=== PATIENT | male | born 1940 | race Caucasian/White ===

== ENCOUNTER 2023-06-11 01:46 | Emergency (ER) | payer OTHER, MEDICARE, SELFPAY ==
[2023-06-11 01:48] VITALS: BP 128/77; PULSE 83; RESP 18; TEMP 36.7; O2SAT 95; BMI 28.3
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
[2023-06-11 02:10] VITALS: BP 138/77; PULSE 83; RESP 16; O2SAT 95
[2023-06-11 02:34] VITALS: BP 118/70; PULSE 81; RESP 20; O2SAT 95
[2023-06-11 03:01] VITALS: BP 150/82; PULSE 73; RESP 20; O2SAT 96
[2023-06-11 03:31] VITALS: BP 113/64; PULSE 76; RESP 23; O2SAT 92
[2023-06-11 04:01] VITALS: BP 113/64; PULSE 72; RESP 18; O2SAT 94
--- NOTE | 2023-06-11 18:21 | DCPLANNER ---
Message sent to wound care for follow on a lac
== END 2023-06-11 04:03 | disposition home or self-care (01) ==
PROVIDERS: Emergency Provider Emergency Medicine; PCP Family Medicine
DX: S51.812A Laceration without foreign body of left forearm, initial encounter (principal); F03.C0 Unspecified dementia, severe, without behavioral disturbance, psychotic disturbance, mood disturbance, and anxiety; V89.2XXA Person injured in unspecified motor-vehicle accident, traffic, initial encounter
CPT/HCPCS: 12002; 70450; 99284